=== PATIENT | female | born 2005 | race Caucasian/White ===

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

== ENCOUNTER 2024-07-21 15:51 | Emergency (ER) | payer OTHER, SELFPAY ==
--- NOTE | ~2024-07-21 | XR_ITS ---
EXAMINATION: XR wrist RT min 3V DATE: 07/21/2024 16:56 INDICATION: Right wrist pain post injury TECHNIQUE: Posteroanterior, ulnar deviation, oblique, and lateral views of the right wrist were obtai tita. COMPARISON: none FINDINGS: Alignment is normal. No fracture. Joint spaces are normal. Soft tissues are unremarkable. IMPRESSION: 1. Negative right wrist radiographs. Reviewed, dictated and finalized at location A.
[2024-07-21 16:15] VITALS: BP 135/63; PULSE 63; RESP 18; TEMP 36.5; O2SAT 100
--- NOTE | 2024-07-21 18:08 | ED_ITS ---
HPI - Extremity Injury (Upper) General Chief Complaint: Extremity Injury, Upper Stated Complaint: right wrist injury Time Seen by Provider: 07/21/24 18:08 Source: patient Mode of arrival: ambulatory Limitations: no limitations History of Present Illness HPI narrative: RIGHT WRIST PAIN AFTER THROWING A GARBAGE BAG OUT. NO OTHER INJURIES Related Data Home Medications Medication Instructions Recorded Confirmed No Home Medications 04/16/21 04/16/21 Allergies Allergy/AdvReac Type Severity Reaction Status Date / Time No Known Allergies Allergy Verified 07/21/24 15:52 Review of Systems Review of Systems: All systems reviewed & are unremarkable except as noted in HPI and below PMFSH Social History Social History Smoking status: Never smoker Alcohol intake: never Substance use: never Gender identity (if verbalized by the patient): Female Exam Narrative: GENERAL APPEARANCE: WELL-DEVELOPED, WELL-NOURISHED SKIN: NORMAL COLOR VASCULAR: NORMAL PERIPHERAL PULSES, NORMAL CAPILLARY REFILL. MUSCULOSKELETAL: SLIGHT DIFFUSE TENDERNESS OF THE RIGHT WRIST, SLIGHT LIMITED RANGE OF MOTION, NO SWELLING, NO BRUISES, NO DEFORMITY NEUROLOGIC: ALERT AND ORIENTED ?3, LINE [employer]OR IS NORMAL TESTED, NO GROSS MOTOR DEFICIT Course Vital Signs Vital signs: Vital Signs Temperature 36.5 C 07/21/24 16:15 Pulse Rate 63 07/21/24 16:15 Respiratory Rate 18 07/21/24 16:15 Blood Pressure 135/63 07/21/24 16:15 Pulse Oximetry 100 07/21/24 16:15 Oxygen Delivery Room Air 07/21/24 16:15 Temperature 36.5 C 07/21/24 16:15 Pulse Rate 63 07/21/24 16:15 Respiratory Rate 18 07/21/24 16:15 Blood Pressure 135/63 07/21/24 16:15 Pulse Oximetry 100 07/21/24 16:15 Oxygen Delivery Room Air 07/21/24 16:15 MDM - Extremity Injury (Upper) Imaging Data Radiologist's impression: Impressions Wrist X-Ray 07/21/24 16:56 IMPRESSION: 1. Negative right wrist radiographs. Critical Care Time Critical Care Time Critical Care Time: No Discharge Plan Discharge Clinical Impression: Right wrist sprain Patient Disposition: Home, Self-Care Condition: Stable Instructions: Wrist Injury (ED) Additional Instructions: RETURN IF SYMPTOMS ARE WORSENING , CALL YOUR FAMILY PHYSICIAN FOR APPOINTMENT, TAKE TYLENOL, IBUPROFEN NEEDED FOR ACHES AND PAIN, CONTINUE HOME MEDICATIONS. KEEP RIGHT WRIST ELEVATED, GET [id number] WRIST SPLINT Prescriptions: No Action No Home Medications Follow-up/Referrals: Hunter Baker MD [Primary Care Provider] -
== END 2024-07-21 18:23 | disposition home or self-care (01) ==
LOC: ANHED 18:21
PROVIDERS: Emergency Provider Emergency Medicine; PCP Pediatrics
DX: S63.501A Unspecified sprain of right wrist, initial encounter (principal); T14.90XA Injury, unspecified, initial encounter
CPT/HCPCS: 73110; 99283